=== PATIENT | male | born 1965 | race African-American/Black ===

== ENCOUNTER 2017-08-17 15:42 | Emergency (ER) | payer SELFPAY ==
[~2017-08-17] VITALS: Ht 190.5 cm; Wt 106.6 kg
[2017-08-17 15:58] VITALS: BP 137/83
[2017-08-17] MEDS ORDERED: NORCO 10-325 T1 EACH ORAL (16:26)
[2017-08-17] MEDS ORDERED: ZOFRAN8 MG ORAL (16:26)
[2017-08-17] MEDS ORDERED: REGLAN5 MG ORAL (16:26)
[2017-08-17] MEDS ORDERED: COMPAZINE10 MG ORAL (16:26)
[2017-08-17] MEDS ORDERED: CAFERGOT TABLE1 EACH PO (16:26)
--- NOTE | 2017-08-17 16:26 | Emergency Room Report ---
History of Present Illness General Chief Complaint: Headache Source: Patient Present Illness HPI 52-year-old male walked in with complaint of left-sided migraine headache for 3 days feels like usual migraine because it is "behind my left eye" associated with eversion to light Denies neck stiffness, vomiting, fever or other sick contacts Has known migraines, took his home medication regimen which includes Cafergot, Reglan, zofran and [place] usually goes to [facility] for IM hydromorphone which resolves headache Allergies: Coded Allergies: KETOROLAC (Verified Allergy, Unknown, 08/17/17) RIZATRIPTAN (Verified Allergy, Unknown, 08/17/17) Patient History Past Medical History: migraines Past Surgical History: none Pertinent Family History: none Social History: Denies: smoking, alcohol use, drug use Immunizations: UTD Reviewed Nursing Documentation: PMH: Agreed, PSxH: Agreed Review of Systems All Other Systems: negative except mentioned in HPI Physical Exam Vital Signs Date Time Temp Pulse Resp B/P (MAP) Pulse Ox O2 Delivery O2 Flow Rate FiO2 08/17/17 15:50 98.2 98 16 137/83 99 Room Air Sp02 EP Interpretation: reviewed, normal General Appearance: normal inspection, well appearing, no apparent distress, alert, GCS 15, non-toxic Head: normocephalic, atraumatic Eyes: bilateral eye PERRL, bilateral eye EOMI ENT: normal ENT inspection, hearing grossly normal, normal voice Neck: normal inspection, full range of motion, supple, no bony tend Respiratory: normal inspection, lungs clear, normal breath sounds, no respiratory distress, no retraction, no wheezing Cardiovascular #1: regular rate, rhythm, no edema Gastrointestinal: normal inspection, normal bowel sounds, non tender, soft, no guarding, no hernia Genitourinary: no CVA tenderness Musculoskeletal: normal inspection, back normal, normal range of motion, Karis' s Sign negative Neurologic: normal inspection, alert, responsive, take out waiter III-XII nml as tested, motor strength/tone normal, speech normal Psychiatric: normal inspection, judgement/insight normal, mood/affect normal Skin: normal inspection, normal color, no rash Medical Decision Making Diagnostic Impression: Primary Impression: Headache Qualified Codes: G44.219 - Episodic tension-type headache, not intractable ER Course 52-year-old male with migraine headache Low suspicion for SAH or meningitis given the well appearance, normal vital signs, afebrile, and no focal neurological deficits d.w the patient that we do not do IM or IV narcotics for migraine headache Patient verbalizes understanding gave low dose of Valium oral to possibly help with vasospasm He will followup with PMD ER course: Patient has remained stable during ED stay. Patient is to be discharged to home. Patient is instructed to follow up with their primary care doctor within 5 days. Strict return precautions discussed with patient such as fever, chills, worsening/severe pain, nausea, vomiting, which may indicate severe illness. Patient verbalizes understanding and agrees with plan. Please note that this Emergency Department Report was dictated using [employer] mender technology software, occasionally this can lead to erroneous entry secondary to interpretation by the dictation equipment Last Vital Signs Date Time Temp Pulse Resp B/P (MAP) Pulse Ox O2 Delivery O2 Flow Rate FiO2 08/17/17 15:50 98.2 98 16 137/83 99 Room Air Status: improved Disposition: HOME, SELF-CARE Condition: Improved Patient Instructions: Migraine Headache CHEN POTTER M.D. Aug 17, 2017 16:26
[2017-08-17 16:30] VITALS: BP 146/88
== END 2017-08-17 16:50 | disposition home or self-care (01) ==
LOC: EMR 16:44
DX: G44.219 Episodic tension-type headache, not intractable (principal); Z88.6 Allergy status to analgesic agent; Z88.8 Allergy status to other drugs, medicaments and biological substances
CPT/HCPCS: 99283

== ENCOUNTER 2018-02-10 08:30 | Emergency (ER) | payer SELFPAY ==
[~2018-02-10] VITALS: Ht 190.5 cm; Wt 108.0 kg
[~2018-02-10 08:30] MED LIST: CAFERGOT TABLE1 EACH PO; COMPAZINE10 MG ORAL; NORCO 10-325 T1 EACH ORAL; REGLAN5 MG ORAL; ZOFRAN8 MG ORAL
[2018-02-10] MEDS ORDERED: PERCOCET 10-321 EAC1 PO (08:43)
[2018-02-10 08:55] VITALS: BP 159/89
[2018-02-10 09:05] VITALS: BP 159/89
--- NOTE | 2018-02-10 11:33 | Emergency Room Report ---
Physical Exam Vital Signs Date Time Temp Pulse Resp B/P (MAP) Pulse Ox O2 Delivery O2 Flow Rate FiO2 02/10/18 08:38 98.2 87 18 159/89 95 Room Air 98.2 Medical Decision Making Diagnostic Impression: Primary Impression: Patient left without being seen Last Vital Signs Date Time Temp Pulse Resp B/P (MAP) Pulse Ox O2 Delivery O2 Flow Rate FiO2 02/10/18 09:05 98.2 78 18 159/89 95 Room Air 98.2 Disposition: LEFT W/OUT BEING SEEN Condition: Unknown Referrals: NOT CHOSEN IPA/,REFERRING (PCP) SWEETIE MILLS D.O. Feb 10, 2018 11:33
== END 2018-02-10 09:10 | disposition left against medical advice (07) ==
LOC: EMR 09:07
DX: R51 Headache (principal); Z53.21 Procedure and treatment not carried out due to patient leaving prior to being seen by health care provider
CPT/HCPCS: 99281